=== PATIENT | male | born 1980 | race Two or more races ===

== ENCOUNTER 2024-07-30 05:01 | Emergency (ER) | payer BC, OTHER ==
[~2024-07-30] VITALS: Ht 165.1 cm; Wt 75.0 kg
[2024-07-30] MEDS ORDERED: LIDOCAINE 1% HCL (LOCAL ANESTH.) INJ 20ML MDV ID ONE (05:30)
--- NOTE | 2024-07-30 05:30 | ED.PDOC ---
Psychiatric HPI Comments 43 year old male presents to the ED with a chief complaint of suicidal ideation onset today. Patient presents with a laceration on LT wrist, states he cut himself due to "wanting to kill myself." Patient has a past medical history of bipolar disorder, is not complaint with medication and states last dose was taken 3 days ago. Patient is unsure when his last Tetanus vaccine was. Denies chest pain, shortness of breath, nausea, vomiting, diarrhea. No other symptoms or modifying factors present at this time. Chief Complaint: Suicidal Time Seen by MD: 05:21 Reviewed Notes: Medications, Allergies Information Source: Patient Mode of Arrival: Ambulatory Severity of Symptoms: Moderate Timing: Hours Duration: Since onset Prehospital treatment: None Presents with: Suicidal Ideation Attempt: Laceration Ingestion: None Circumstance: None Current substance abuse: None History of: Bipolar Quality: None Location: Left, Wrist Location of pain or injury: Wrist Past Medical History Past Medical History (Other): Bipolar disorder Surgical History: Denies all surgeries Family History Family History: Unknown Social History Smoker: Non-Smoker Alcohol: Denies ETOH Use Drugs: Denies Drug Use Lives In: Home Constitutional: denies: chills, diaphoresis, fatigue, fever, malaise, sweats, weakness, others EENTM: denies: blurred vision, double vision, ear bleeding, ear discharge, ear drainage, ear pain, ear ringing, eye pain, eye redness, hearing loss, mouth pain, mouth swelling, nasal discharge, nose bleeding, nose congestion, nose pain, photophobia, tearing, throat pain, throat swelling, voice changes, others Respiratory: denies: cough, hemoptysis, orthopnea, SOB at rest, shortness of breath, SOB with excertion, stridor, wheezing, others Cardiovascular: denies: chest pain, dizzy spells, diaphoresis, Dyspnea on exertion, edema, irregular heart beat, left arm pain, lightheadedness, palpitations, PND, syncope, others Gastrointestinal: denies: abdomen distended, abdominal pain, blood streaked bowels, constipated, diarrhea, dysphagia, difficulty swallowing, hematemesis, melena, nausea, poor appetite, poor fluid intake, rectal bleeding, rectal pain, vomiting, others Genitourinary: denies: burning, dysuria, flank pain, frequency, hematuria, incontinence, penile discharge, penile sore, pain, testicle pain, testicle swelling, urgency, others Neurological: denies: dizziness, fainting, headache, left sided numbness, left sided weakness, numbness, paresthesia, pre-existing deficit, right sided numbness, right sided weakness, seizure, speech problems, tingling, tremors, weakness, others Musculoskeletal: denies: back pain, gout, joint pain, joint swelling, muscle pain, muscle stiffness, neck pain, others Integumetry: reports: laceration (LT wrist); denies: bruises, change in color, change in hair/nails, dryness, lesions, lumps, rash, wounds, others Allergic/Immunocompromised: denies: Difficulty Healing, Frequent Infections, Hives, Itching, others Hematologic/Lymphatic: denies: anemia, blood clots, easy bleeding, easy bruising, swollen glands, others Endocrine: denies: excessive hunger, excessive sweating, excessive thirst, excessive urination, flushing, intolerance to cold, intolerance to heat, unexplained weight gain, unexplained weight loss, others Psychiatric: reports: bipolar disorder, suicidal; denies: anxiety, depression, hopeless, panic disorder, schizophrenia, sleepless, others All Other Systems: Reviewed and Negative Physical Exam General Appearance: Mild Distress HEENT: Other (Unremarkable) Neck: Full Range of Motion, Normal Inspection Respiratory: Lungs Clear, No Accessory Muscle Use, No Respiratory Distress, Normal Breath Sounds Cardiovascular: No Edema, No JVD, Regular Rate/Rhythm Breast Exam: Deferred Gastrointestinal: Non Tender, Soft Genitalia: Deferred Pelvic: Deferred Rectal: Deferred Extremities: Normal range of motion, No pedal edema, Tender (Left wrist volar aspect with irregular approximate 2.5 cm laceration. No visualized foreign body, bony deformity or tendon injury. Left upper extremity neurovascularly intact.) Neurologic: Alert (Oriented x4), Normal Affect, Other (Anxious, depressed mood. Ambulatory without difficulty. No gross focal deficit.) Cerebellar Function: NOT DONE Reflexes: NOT DONE Skin: Dry, Normal Color, Warm, Wounds (Left wrist volar aspect irregular approximate 2.5 cm wound with central blood clot.) Lymphatic: NOT DONE Was a procedure done? Was a procedure done?: Yes Sedation Sedation?: No Laceration Repair : Length 2.5 cm Anesthetic: Lidocaine Laceration Repair Prep: Saline, Betadine Laceration Repair Wound Comple: epidermis/dermis repair Laceration Repair: Number of sutures (running mattress stitch, #6), Skin, Nylon (4.0 ethilon) Informed consent obtained: Yes Risks, benefits, and alternati: Yes Psych Differential Dx Psych. Differential Dx: Anxiety, Bipolar Disorder, Depression, Hopeless, Suicidal Suicidal Differential Dx: Alcohol Abuse, Laceration, Substance Abuse Intoxication Differential Dx: Drug-Induced Psychosis, Electrolyte Imbalance, Encephalopathy X-Ray, Labs, Meds, VS Vital Signs Date Time Temp Pulse Resp B/P (MAP) Pulse Ox O2 Delivery O2 Flow Rate FiO2 07/30/24 05:05 98.0 135 22 162/91 (114) 100 Lab Test 07/30/24 05:30 Range/Units White Blood Count 11.8 H 4.4-10.8 10^3/uL Red Blood Count 5.66 4.5-5.90 10^6/uL Hemoglobin 16.0 13.5-17.5 g/dL Hematocrit 47.8 41.0-53.0 % Mean Corpuscular Volume 84.4 80.0-100.0 fL Mean Corpuscular Hemoglobin 28.3 28.0-32.0 pg Mean Corpuscular Hemoglobin Concent 33.5 32.0-36.0 g/dL Red Cell Distribution Width 14.1 11.8-14.3 % Platelet Count 327 140-450 10^3/uL Mean Platelet Volume 7.9 6.9-10.8 fL Neutrophils (%) (Auto) 66.2 37.0-80.0 % Lymphocytes (%) (Auto) 27.0 10.0-50.0 % Monocytes (%) (Auto) 5.9 0.0-12.0 % Eosinophils (%) (Auto) 0.5 0.0-7.0 % Basophils (%) (Auto) 0.4 0.0-2.0 % Neutrophils # (Auto) 7.8 1.6-8.6 10 ^3/uL Lymphocytes # (Auto) 3.2 0.4-5.4 10 ^3/uL Monocytes # (Auto) 0.7 0-1.3 10 ^3/uL Eosinophils # (Auto) 0.1 0-0.8 10 ^3/uL Basophils # (Auto) 0 0-0.2 10 ^3/uL Nucleated Red Blood Cells 0.2 % Sodium Level Pending Potassium Level Pending Chloride Level Pending Carbon Dioxide Level Pending Anion Gap Pending Blood Urea Nitrogen Pending Creatinine Pending Glomerular Filtration Rate Calc Pending BUN/Creatinine Ratio Pending Serum Glucose Pending Calcium Level Pending Total Bilirubin Pending Aspartate Amino Transferase (AST) Pending Alanine Aminotransferase (ALT) Pending Alkaline Phosphatase Pending Total Protein Pending Albumin Pending Salicylates Level Pending Acetaminophen Level Pending Plasma/Serum Blood Alcohol Pending Current Medications Medications (Trade) Dose Ordered Sig/Yulissa Route Start Time Stop Time Status Last Admin Lidocaine HCl (Xylocaine 1%) 20 ml ONCE ONCE ID 07/30/24 05:45 07/30/24 05:46 DC 07/30/24 05:39 X-Ray, Labs, Meds, VS Comment 43-year-old male with a history of bipolar disorder presenting with a self- inflicted left wrist laceration, and stating he is suicidal. Vitals remarkable for Exam remarkable for anxiety, depression, left wrist approximate 2.5 cm irregular laceration on the volar aspect. Left upper extremity is neurovascularly intact. CBC, CMP, Tylenol, salicylate, alcohol, drug screen and EKG pending Patient treated with the following in the ED: Tdap 0.5 mL IM The left wrist laceration was repaired by me. Please see procedure note for details. Patient will be endorsed to the oncoming ED physician Dr. Perez at 6:00 a.m. pending lab results and medical clearance. Patient will require tele psych evaluation. Time of 1ST Reevaluation: 05:51 Reevaluation 1ST: Unchanged Patient Education/Counseling: Diagnosis, Treatment, Prognosis Family Education/Counseling: No Family Present Departure 1 Departure Time of Disposition: 06:00 Impression: Primary Impression: Depression with suicidal ideation Additional Impression: Laceration of wrist, left Qualified Codes: S61.512A - Laceration without foreign body of left wrist, initial encounter Disposition: 30 STILL A PATIENT Condition: Guarded Critical Care Note Critical Care Time?: No Stability Stability form required: No Heart Score Heart Score: Heart Score Response (Comments) Value History N/A 0 EKG N/A 0 Age N/A 0 Risk Factors N/A 0 Troponin N/A 0 Total 0 I personally scribed for WILLIE TRACY MD ([email or web address]) on 07/30/24 at 05:30. Electronically submitted by Kayla Hall ([email or web address]). I personally scribed for WILLIE TRACY MD ([email or web address]) on 07/30/24 at 05:31. Electronically submitted by Kayla Hall ([email or web address]). WILLIE TRACY MD Jul 30, 2024 05:30
[2024-07-30] MEDS: LIDOCAINE 1% HCL (LOCAL ANESTH.) INJ 20ML MDV ONE (05:38)
[2024-07-30] MEDS: LIDOCAINE 1% HCL (LOCAL ANESTH.) INJ 20ML MDV ID ONE (05:39)
[2024-07-30 05:50] LABS: Basophils # (auto) 0 10 ^3/uL (0-0.2); Basophils % (auto) 0.4 % (0.0-2.0); Eosinophils # (auto) 0.1 10 ^3/uL (0-0.8); Eosinophils % (auto) 0.5 % (0.0-7.0); Hematocrit 47.8 % (41.0-53.0); Lymphocytes # (auto) 3.2 10 ^3/uL (0.4-5.4); Mean Corpuscular Hemoglobin 28.3 pg (28.0-32.0); Mean Corpuscular Hgb Conc. 33.5 g/dL (32.0-36.0); Mean Corpuscular Volume 84.4 fL (80.0-100.0); Monocytes # (auto) 0.7 10 ^3/uL (0-1.3); Monocytes % (auto) 5.9 % (0.0-12.0); Neutrophils # (auto) 7.8 10 ^3/uL (1.6-8.6); Neutrophils % (auto) 66.2 % (37.0-80.0); Nucleated Red Blood Cells % 0.2 %; Platelet Count (auto) 327 10^3/uL (140-450); Red Blood Cells 5.66 10^6/uL (4.5-5.90); Red Cell Distribution Width 14.1 % (11.8-14.3); White Blood Cell 11.8 10^3/uL (4.4-10.8)
[2024-07-30 06:05] VITALS: PULSE 128; RESP 35; O2SAT 100
[2024-07-30 06:07] LABS: Alanine Aminotransferase 37 U/L (7-40); Alkaline Phosphatase 102 U/L (46-116); Anion Gap 16 (5-15); Aspartate Aminotransferase 25 U/L (13-40); BUN/Creatinine Ratio 7.9 (10.0-20.0); Bilirubin, Total 0.8 mg/dL (0.2-1.0); Blood Urea Nitrogen 10 mg/dL (9-23); Carbon Dioxide 21 mmol/L (20-31); Chloride 102 mmol/L (98-107); Sodium 139 mmol/L (136-145); Total Protein 8.1 g/dL (5.7-8.2)
[2024-07-30 06:09] LABS: Acetaminophen < 2.0 UG/ML (10.0-20.0); Albumin 5.1 g/dL (3.2-4.8); Calcium 10.4 mg/dL (8.7-10.4); Glucose 183 mg/dL (74-106); Potassium 3.1 mmol/L (3.5-5.1); Salicylate < 3.0 mg/dL (-30)
[2024-07-30] MEDS: TETANUS-DIPTH-ACEL PERTUSSIS 0.5ML SYR Tdap IM ONE (06:23)
--- NOTE | 2024-07-30 06:41 | ECG ---
[facility] Test Date: 2024-07-30 Test Time: 06:15:22 Pat Name: DAIJA LOWE Department: ER Room: Gender: M C Developer: ER : 1980 Requested By: WILLIE ROSAS Order Number: [id number] Reading MD: Oli Betancourt Measurements Intervals [place] Rate: 84 P: 65 PA: 148 QRS: 50 QRSD: 84 T: 41 QT: 330 QTc: 391 Interpretive Statements Sinus rhythm Electronically Signed On 07-30-2024 10:27:57 PST by Oli Betancourt Please click the below link to view image of tracing.
[2024-07-30 07:00] LABS: Blood Alcohol < 3.0 mg/dL (<10)
[2024-07-30] MEDS: SODIUM CHLORIDE 0.9% 1,000 ML IV ONE (07:13)
[2024-07-30 07:30] VITALS: PULSE 98; RESP 18; O2SAT 99
[2024-07-30 07:59] LABS: Urine Bacteria None Seen /hpf (None Seen)
[2024-07-30 08:12] LABS: Urine Amorphous Crystal FEW /hpf (None Seen); Urine Blood TRACE /uL (Negative); Urine Color Yellow (Yellow); Urine Mucus FEW (None Seen); Urine Protein, UAD TRACE (Negative); Urine Specific Gravity 1.021 (1.001-1.035); Urine Squamous Epithelial Cell None Seen /hpf (<5); Urine Urobilinogen Normal (Negative); Urine WBC 1 /hpf (0 - 3); Urine pH 5.5 (5.0-9.0)
[2024-07-30 08:15] LABS: Urine Clarity Clear (Clear)
[2024-07-30] MEDS: POTASSIUM CHL 20 Meq TABLET PO ONE (08:23)
[2024-07-30 08:25] LABS: Amphetamine Screen, Urine Neg (NEGATIVE); Barbiturate Scree,Urine Neg (NEGATIVE); Benzodiazephine Screen, Urine Neg (NEGATIVE); Cannabinoid Screen, Urine Neg (NEGATIVE); Cocaine Screen, Urine Neg (NEGATIVE); Opiate Scree,Urine Neg (NEGATIVE); Phencyclidine Screen, Urine Neg (NEGATIVE)
[2024-07-30 08:44] VITALS: BP 149/88; PULSE 98; RESP 18; TEMP 98.8; O2SAT 99
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
== END 2024-07-30 11:09 | disposition home or self-care (01) ==
LOC: ER 05:01 → EDBD 05:01 → ER 11:09
DX: R45.851 Suicidal ideations (principal); S61.512A Laceration without foreign body of left wrist, initial encounter; F32.A Depression, unspecified; Z79.899 Other long term (current) drug therapy; W45.8XXA Other foreign body or object entering through skin, initial encounter; Y93.89 Activity, other specified; Y92.89 Other specified places as the place of occurrence of the external cause; Y99.8 Other external cause status
CPT/HCPCS: 12001; 36415; 80053; 80307; 80320; 80329; 81001; 85025; 90715; 93005; 99284; J2003